=== PATIENT | female | born 1960 | race Caucasian/White ===

== ENCOUNTER 2016-08-21 12:59 | Emergency (ER) | payer MEDICAID ==
[~2016-08-21] VITALS: Ht 157.5 cm; Wt 77.1 kg
[2016-08-21 13:00] VITALS: BP_SYST 144
--- NOTE | 2016-08-21 13:00 | NUR ---
BROUGHT BACK TO BED #7 AND TRIAGED. REPORT GIVEN TO PEYTON
--- NOTE | 2016-08-21 13:05 | NUR ---
Pt presents to ED with cough. Afebrile. No acute distress. Breathing is even and unlabored. Pt reports having a cough since Friday. Reports having fever yesterday. Denies pain. Pt reports taking ibuprofen at home for fever.
--- NOTE | 2016-08-21 13:10 | NUR ---
Dr. Ortega at bedside for evaluation
[2016-08-21 14:35] VITALS: BP_SYST 144
--- NOTE | 2016-08-21 14:35 | NUR ---
Patient given written and verbal discharge instructions and verbalizes understanding. ER MD discussed with patient the results and treatment provided. Patient in stable condition. ID arm band removed. Rx of promethazine VC plain given. Patient educated on pain management and to follow up with PMD. Pain Scale 0/10. Opportunity for questions provided and answered.
== END 2016-08-21 14:35 | disposition home or self-care (01) ==
LOC: SED 12:59
DX: J06.9 Acute upper respiratory infection, unspecified (principal); J45.909 Unspecified asthma, uncomplicated; E11.9 Type 2 diabetes mellitus without complications
CPT/HCPCS: 71020-TC; 99284

== ENCOUNTER 2017-03-04 14:23 | Inpatient (IN) | payer MEDICAID ==
[~2017-03-04] VITALS: Ht 157.5 cm; Wt 76.7 kg
[2017-03-04 14:39] VITALS: BP_SYST 157
[2017-03-04] MEDS ORDERED: IPRATROPIUM/ALBUTEROL SULFATE 3 ML AMPUL.NEB INH ONE (14:45)
[2017-03-04 15:02] LABS: BASOPHILS % (AUTO) 0.5 % (0.0-2.0); EOSINOPHILS # (AUTO) 0.3 K/uL (0.0-0.4); EOSINOPHILS % (AUTO) 3.8 % (0.0-4.0); HEMATOCRIT 45.3 % (36-48); LYMPHOCYTES # (AUTO) 1.9 K/uL (1.0-5.5); LYMPHOCYTES % (AUTO) 22.9 % (20.5-51.5); MEAN CORPUSCULAR HEMOGLOBIN 29 pg (27-31); MEAN CORPUSCULAR HGB CONC 33 % (32-36); MEAN CORPUSCULAR VOLUME 88 fL (79.0-98.0); MONOCYTES # (AUTO) 0.4 K/uL (0.0-1.0); MONOCYTES % (AUTO) 4.8 % (1.7-9.3); NEUTROPHILS # (AUTO) 5.5 K/uL (1.8-7.7); PLATELET COUNT (AUTO) 242 K/uL (130-430); RED BLOOD CELL COUNT(AUTO) 5.13 MIL/uL (4.2-6.2); RED CELL DISTRIBUTION WIDTH 12.2 % (9.0-15.0); WHITE BLOOD COUNT (AUTO) 8.1 K/uL (4.8-10.8)
[2017-03-04 15:20] LABS: CALCIUM 8.6 mg/dL (8.4-11.0); CREATININE 0.84 mg/dL (0.55-1.30); POTASSIUM 3.8 mmol/L (3.5-5.1)
[2017-03-04 15:43] LABS: TOTAL BILIRUBIN 0.5 mg/dL (0.0-1.0)
[2017-03-04 15:44] LABS: ALBUMIN 3.8 g/dL (3.4-4.8)
[2017-03-04] MEDS ORDERED: NACL 0.9% 1,000 ML IV ONE (16:00)
[2017-03-04] MEDS ORDERED: INSULIN REGULAR, HUMAN 10 UNITS/0.1 ML INJ IVP ONE (16:00)
[2017-03-04] MEDS ORDERED: DEXTROSE 50% JECT 50 ML DISP.SYRIN IVP PRN (18:00)
[2017-03-04] MEDS ORDERED: LORazepam 2 MG/ML VIAL IVP PRN (18:00)
[2017-03-04] MEDS ORDERED: POTASSIUM CHLORIDE 20 MEQ TAB.PRT.SR PO PRN (18:00)
[2017-03-04] MEDS ORDERED: ACETAMINOPHEN 325 MG TABLET PO PRN (18:00)
[2017-03-04] MEDS ORDERED: ONDANSETRON HCL 4 MG/2 ML VIAL IVP PRN (18:00)
[2017-03-04] MEDS ORDERED: MAGNESIUM SULFATE 50 ML IV PRN (18:00)
[2017-03-04] MEDS ORDERED: DOCUSATE SODIUM 100 MG CAPSULE PO PRN (18:00)
[2017-03-04] MEDS ORDERED: ZOLPIDEM TARTRATE 5 MG TABLET PO PRN (18:00)
[2017-03-04] MEDS ORDERED: MORPHINE 2 MG/ML INJ. SYRINGE IVP PRN ×2 (18:00)
[2017-03-04] MEDS ORDERED: LISINOPRIL 10 MG TABLET (PRINIVIL) PO ONE (18:15)
[2017-03-04 19:14] VITALS: BP_SYST 121
[2017-03-04] MEDS ORDERED: ASPI-1063 PO (19:41)
[2017-03-04 19:50] VITALS: BP_SYST 121
[2017-03-04] MEDS: IPRATROPIUM/ALBUTEROL SULFATE 3 ML AMPUL.NEB INH SCH ×2 (20:29→23:10)
[2017-03-04 21:04] VITALS: BP_SYST 121
[2017-03-04] MEDS: HEPARIN SODIUM,PORCINE 5000 UNITS/ML VIAL SUBCUT SCH (22:38)
[2017-03-04] MEDS: INSULIN ASPART 100 UNITS/ML, 10 ML VIAL (NovoLOG) SUBCUT PRN (22:39)
[2017-03-05] VITALS: BP_SYST 122
[2017-03-05] MEDS: IPRATROPIUM/ALBUTEROL SULFATE 3 ML AMPUL.NEB INH SCH ×6 (03:00→23:00)
[2017-03-05 04:00] VITALS: BP_SYST 101
[2017-03-05] MEDS: INSULIN ASPART 100 UNITS/ML, 10 ML VIAL (NovoLOG) SUBCUT PRN ×4 (06:35→20:19)
[2017-03-05 07:09] LABS: BASOPHILS % (AUTO) 0.4 % (0.0-2.0); EOSINOPHILS # (AUTO) 0.4 K/uL (0.0-0.4); EOSINOPHILS % (AUTO) 5.3 % (0.0-4.0); HEMATOCRIT 38.3 % (36-48); HEMOGLOBIN 12.8 g/dL (12.0-16.0); LYMPHOCYTES # (AUTO) 2.8 K/uL (1.0-5.5); LYMPHOCYTES % (AUTO) 33.6 % (20.5-51.5); MEAN CORPUSCULAR HEMOGLOBIN 30 pg (27-31); MEAN CORPUSCULAR HGB CONC 33 % (32-36); MEAN CORPUSCULAR VOLUME 90 fL (79.0-98.0); MONOCYTES # (AUTO) 0.5 K/uL (0.0-1.0); MONOCYTES % (AUTO) 6.2 % (1.7-9.3); NEUTROPHILS # (AUTO) 4.5 K/uL (1.8-7.7); NEUTROPHILS % (AUTO) 54.5 % (40.0-70.0); PLATELET COUNT (AUTO) 199 K/uL (130-430); RED BLOOD CELL COUNT(AUTO) 4.27 MIL/uL (4.2-6.2); RED CELL DISTRIBUTION WIDTH 12.1 % (9.0-15.0); WHITE BLOOD COUNT (AUTO) 8.2 K/uL (4.8-10.8)
[2017-03-05 08:00] VITALS: BP_SYST 119
[2017-03-05] MEDS: LISINOPRIL 10 MG TABLET (PRINIVIL) PO SCH (09:38)
[2017-03-05] MEDS: HEPARIN SODIUM,PORCINE 5000 UNITS/ML VIAL SUBCUT SCH ×2 (09:39→20:20)
[2017-03-05 09:47] LABS: POTASSIUM 3.1 mmol/L (3.5-5.1)
[2017-03-05 10:00] LABS: CALCIUM 8.2 mg/dL (8.4-11.0); CREATININE 0.54 mg/dL (0.55-1.30)
[2017-03-05 10:02] LABS: CHOLESTEROL 196 mg/dL (<200); HDL CHOLESTEROL 28 mg/dL (>55); LDL CHOLESTEROL 136 mg/dL (<100); TRIGLYCERIDES 282 mg/dL (30-150)
[2017-03-05 11:49] VITALS: BP_SYST 117
[2017-03-05 15:42] VITALS: BP_SYST 114
[2017-03-05 20:12] VITALS: BP_SYST 114
[2017-03-06] MEDS: IPRATROPIUM/ALBUTEROL SULFATE 3 ML AMPUL.NEB INH SCH ×2 (03:00→07:23)
[2017-03-06 04:00] VITALS: BP_SYST 110
[2017-03-06] MEDS: INSULIN ASPART 100 UNITS/ML, 10 ML VIAL (NovoLOG) SUBCUT PRN ×2 (06:11→11:26)
[2017-03-06 06:30] LABS: BASOPHILS % (AUTO) 0.4 % (0.0-2.0); EOSINOPHILS # (AUTO) 0.5 K/uL (0.0-0.4); EOSINOPHILS % (AUTO) 5.2 % (0.0-4.0); HEMATOCRIT 38.9 % (36-48); HEMOGLOBIN 13.1 g/dL (12.0-16.0); LYMPHOCYTES # (AUTO) 2.7 K/uL (1.0-5.5); LYMPHOCYTES % (AUTO) 28.6 % (20.5-51.5); MEAN CORPUSCULAR HEMOGLOBIN 30 pg (27-31); MEAN CORPUSCULAR HGB CONC 34 % (32-36); MEAN CORPUSCULAR VOLUME 89 fL (79.0-98.0); MONOCYTES # (AUTO) 0.5 K/uL (0.0-1.0); MONOCYTES % (AUTO) 5.5 % (1.7-9.3); NEUTROPHILS # (AUTO) 5.6 K/uL (1.8-7.7); NEUTROPHILS % (AUTO) 60.3 % (40.0-70.0); PLATELET COUNT (AUTO) 223 K/uL (130-430); RED BLOOD CELL COUNT(AUTO) 4.36 MIL/uL (4.2-6.2); RED CELL DISTRIBUTION WIDTH 12.7 % (9.0-15.0); WHITE BLOOD COUNT (AUTO) 9.3 K/uL (4.8-10.8)
[2017-03-06 07:04] LABS: CALCIUM 8.5 mg/dL (8.4-11.0); CREATININE 0.52 mg/dL (0.55-1.30); POTASSIUM 4.2 mmol/L (3.5-5.1)
[2017-03-06 07:27] VITALS: BP_SYST 131
[2017-03-06 08:00] VITALS: BP_SYST 104
[2017-03-06] MEDS: LISINOPRIL 10 MG TABLET (PRINIVIL) PO SCH (09:09)
[2017-03-06] MEDS: HEPARIN SODIUM,PORCINE 5000 UNITS/ML VIAL SUBCUT SCH (09:11)
[2017-03-06] MEDS ORDERED: LIP20 PO (10:29)
[2017-03-06] MEDS ORDERED: GLYB5TAB7 PO (10:29)
[2017-03-06] MEDS ORDERED: GLU850 PO (10:29)
[2017-03-06] MEDS ORDERED: ASPI-1063 PO (10:29)
[2017-03-06] MEDS ORDERED: LISI-209 PO (10:29)
[2017-03-06 10:33] VITALS: BP_SYST 99
[2017-03-06 11:04] VITALS: BP_SYST 119
== END 2017-03-06 12:10 | disposition home health service (06) | DRG 420 ==
LOC: SED 14:23 → STU 17:36
PROVIDERS: ADMIT General Practice; ATTEND General Practice
DX: E11.65 Type 2 diabetes mellitus with hyperglycemia (principal); J45.901 Unspecified asthma with (acute) exacerbation; I10 Essential (primary) hypertension; E78.5 Hyperlipidemia, unspecified; E87.6 Hypokalemia; E66.9 Obesity, unspecified; Z83.3 Family history of diabetes mellitus; Z91.013 Allergy to seafood; Z90.49 Acquired absence of other specified parts of digestive tract; Z68.30 Body mass index [BMI] 30.0-30.9, adult; Z79.82 Long term (current) use of aspirin
CPT/HCPCS: 36415; 36600; 71010; 78579; 78580-TC; 80048; 80053; 80061; 82803-TC; 82962; 83036; 83735-TC; 83880; 84484; 85025; 85379; 93005; 94640; 94760; 96361; 96374; 99285; A9539; A9540; J1644; J1815; J7030

== ENCOUNTER 2017-05-07 09:39 | Emergency (ER) | payer MEDICAID ==
[~2017-05-07] VITALS: Ht 157.5 cm; Wt 76.7 kg
[~2017-05-07 09:39] MED LIST: ASPI-1063 PO; GLU850 PO; GLYB5TAB7 PO; LIP20 PO; LISI-209 PO
[2017-05-07 10:02] VITALS: BP_SYST 150
[2017-05-07 10:49] LABS: STREPTOCOCCUS A SCREEN (RAPID) NEGATIVE (NEGATIVE)
[2017-05-07 11:22] VITALS: BP_SYST 145
== END 2017-05-07 11:22 | disposition home or self-care (01) ==
LOC: SED 09:39
DX: J10.1 Influenza due to other identified influenza virus with other respiratory manifestations (principal); J45.909 Unspecified asthma, uncomplicated
CPT/HCPCS: 36415; 86403; 86710; 87081; 99284

== ENCOUNTER 2018-09-17 12:50 | Emergency (ER) | payer MEDICAID ==
[~2018-09-17] VITALS: Ht 157.5 cm; Wt 77.6 kg
[~2018-09-17 12:50] MED LIST changes: -ASPI-1063 PO; +ASPI-1153 PO; +ASPI-1154 PO
[2018-09-17] MEDS ORDERED: FLUORESCEIN SODIUM 1 MG OPHTHALMIC STRIP OP ONE (12:51)
[2018-09-17] MEDS ORDERED: BALANCED SALT IRRIG SOLN 15 ML IO ONE (12:51)
[2018-09-17] MEDS ORDERED: TETRACAINE HCL 0.5% OPHTHALMIC DROPS 15 ML OP ONE (12:51)
[2018-09-17 13:00] VITALS: BP_SYST 165
[2018-09-17] MEDS ORDERED: KETOROLAC TROMETHAMINE 60 MG/2 ML VIAL IM ONE (15:00)
[2018-09-17] MEDS ORDERED: PROCHLORPERAZINE EDISYLATE 10 MG/2 ML VIAL IM ONE (15:00)
[2018-09-17 16:15] VITALS: BP_SYST 165
== END 2018-09-17 16:13 | disposition home or self-care (01) ==
LOC: SED 12:50
DX: R51 Headache (principal); J45.909 Unspecified asthma, uncomplicated; Z79.82 Long term (current) use of aspirin; Z79.899 Other long term (current) drug therapy
CPT/HCPCS: 96372; 99283; J0780; J1885